=== PATIENT | female | born 1990 | race Caucasian/White ===

== ENCOUNTER 2018-04-26 01:40 | Emergency (ER) | payer SELFPAY ==
[2018-04-26 02:49] LABS: #Basophils 0.1 thou/uL (0.0-0.2); #Eosinphils 0.1 thou/uL (0.0-0.7); #Lymphocytes 3.7 thou/uL (1.20-3.40); #Monocytes 0.6 thou/uL (0.11-0.59); #Neutrophils 4.5 thou/uL (1.40-6.50); %Eosinophils 1.2 % (0.0-10.0); %Lymphocytes 41.5 % (21.0-51.0); %Monocytes 6.3 % (0.0-10.0); %Neutrophils 49.9 % (42.0-75.0); Hemoglobin 14.2 g/dL (12.0-16.0); Mean Corpuscular HGB CONC 34.1 g/dL (32.0-36.0); Mean Corpuscular Hemoglobin 30.5 pg (27.0-31.0); Mean Corpuscular Volume 89.3 fL (78.0-98.0); Mean Platelet Volume 8.2 fL (7.4-10.4); Platelet Count 302 thou/uL (130-400); Red Blood Cell (RBC) Count 4.67 mill/uL (4.20-5.40); White Blood Cell (WBC) Count 8.9 thou/uL (4.8-10.8)
[2018-04-26 03:10] LABS: ALT (SGPT) 8 U/L (8-55); AST (SGOT) 14 U/L (5-34); Albumin 4.7 g/dL (3.5-5.0); Alkaline Phosphatase 53 U/L (40-150); Anion Gap 16 mmol/L (10-20); BUN (Urea Nitrogen) 13 mg/dL (7.0-18.7); Bilirubin, Total 0.9 mg/dL (0.2-1.2); CK (CPK) 85 U/L (29-168); Calc. Creatinine Clearance 0 mL/min (70-130); Calcium 10.3 mg/dL (7.8-10.44); Carbon Dioxide 18 mmol/L (22-29); Chloride 107 mmol/L (98-107); Estimated GFR-MDRD 79; Glucose 106 mg/dL (70-105); Potassium 3.3 mmol/L (3.5-5.1); Protein, Total 7.7 g/dL (6.0-8.3); Sodium 138 mmol/L (136-145)
[2018-04-26 03:14] LABS: CKMB 0.4 ng/mL (0-6.6); Troponin I Less than 0.010 ng/mL (< 0.028)
--- NOTE | 2018-04-26 08:18 | RAD ---
SINGLE VIEW OF THE CHEST: COMPARISON: None. HISTORY: Chest pain on the left that radiates to the right side and back. FINDINGS: Single view of the chest shows a normal sized cardiomediastinal silhouette. There is no evidence of c onsolidation, mass, or pleural effusion. The bones are unremarkable. IMPRESSION: No evidence of acute cardiopulmonary disease. POS: [facility]
--- NOTE | 2018-04-26 09:23 | CT ---
PRELIMINARY REPORT/[facility]/EMERGENCY AFTER HOURS PROCEDURE: EXAM: CT Angiography Chest With Intravenous Contrast CLINICAL HISTORY: 28 years old, female; Pain; Chest pain and chest pressure; Patient HX: F30 presents to ed for chest p ain. Pt reports really bad chest pain that she reports feels like someone is sitting on her chest. Pt reports last night she woke up around 2: 30 in the morning with chest pain TECHNIQUE: Axial computed tomographic angiography images of the chest with intravenous contrast using pulmonary embolism protocol. MIP reconstructed images were created and reviewed. COMPARISON: No relevant prior studies available. FINDINGS: Pulmonary arteries: No pulmonary embolism. Aorta: No acute findings. Lungs: Minimal bilateral upper and lower lobe bronchial wall thickening, compatible with reactive air way disease or bronchitis. Pleural space: Normal. No significant effusion. No pneumothorax. Heart: Normal. Bones/joints: No acute fracture. No dislocation. Soft tissues: Normal. Lymph nodes: Normal. IMPRESSION: 1. No pulmonary embolism. 2. Minimal bilateral upper and lower lobe bronchial wall thickening, compatible with reactive airway disease or bronchitis. Thank you for allowing us to participate in the care of your patient. Dictated and Authenticated by: Eric Cruz MD 04/26/2018 3:09 AM Central Time ([place] & [place]) FINAL REPORT CT ARTERIOGRAM CHEST WITH IV CONTRAST AND 3D MIP IMAGING: DATE: 04/26/18. TIME: Performed on an emergency basis at 0223 hours. HISTORY: Chest pain. Dyspnea. FINDINGS: Agree with the preliminary report by Dr. Cruz from [facility]. There is no CT evidence of p ulmonary embolus. POS: [facility]
[2018-04-26] MEDS ORDERED: ISOVUE-370 76%-LOCM 1 ML ONE (12:01)
== END 2018-04-26 03:24 | disposition home or self-care (01) ==
LOC: ERS 01:40
DX: J40 Bronchitis, not specified as acute or chronic (principal)
CPT/HCPCS: 71045; 71275; 80053; 82550; 82553; 84484; 85025; 93005; 96360

== ENCOUNTER 2018-05-06 10:03 | Outpatient (CLI) | payer OTHER ==
--- NOTE | 2018-05-06 11:45 | ULT ---
ULTRASOUND ABDOMEN LIMITED: (RIGHT UPPER QUADRANT) DATE: 05-06-18 HISTORY: Right upper quadrant abdominal pain in 28-year-old female. FINDINGS: Gallbladder: Large number of gallstones, at least most of them mobile, with various sizes. Normal wal l thickness of 3 mm. No sonographic Vallejo's sign. No pericholecystic fluid. Common duct: 5 mm Liver: Normal sonographic appearance. Pancreas: Normal sonographic appearance. Right kidney: No hydronephrosis. IMPRESSION: 1. Positive for cholelithiasis. 2. No sonographic evidence of acute cholecystitis. BETHANY Landon POS: [facility]
== END 2018-05-06 10:04 | disposition home or self-care (01) ==
LOC: BICULT 10:03
PROVIDERS: ATTEND Family Medicine
DX: K21.9 Gastro-esophageal reflux disease without esophagitis (principal); R10.11 Right upper quadrant pain; K80.20 Calculus of gallbladder without cholecystitis without obstruction
CPT/HCPCS: 76705

== ENCOUNTER 2018-11-01 03:33 | Outpatient (CLI) | payer BC ==
[2018-11-01 09:51] LABS: #Basophils 0.1 thou/uL (0.0-0.2); #Eosinphils 0.1 thou/uL (0.0-0.7); #Lymphocytes 3.2 thou/uL (1.20-3.40); #Monocytes 0.8 thou/uL (0.11-0.59); #Neutrophils 6.9 thou/uL (1.40-6.50); %Basophils 1.1 % (0.0-1.0); %Eosinophils 0.8 % (0.0-10.0); %Lymphocytes 28.9 % (21.0-51.0); %Monocytes 7.4 % (0.0-10.0); %Neutrophils 61.8 % (42.0-75.0); Hemoglobin 12.8 g/dL (12.0-16.0); Mean Corpuscular HGB CONC 33.7 g/dL (32.0-36.0); Mean Corpuscular Hemoglobin 31.5 pg (27.0-31.0); Mean Corpuscular Volume 93.4 fL (78.0-98.0); Mean Platelet Volume 7.6 fL (7.4-10.4); Platelet Count 269 thou/uL (130-400); Red Blood Cell (RBC) Count 4.06 mill/uL (4.20-5.40); White Blood Cell (WBC) Count 11.1 thou/uL (4.8-10.8)
[2018-11-01 10:03] LABS: BHCG - Serum Negative (NEGATIVE); Pregs Control Background? CLEAR/WHITE (CLR/WHITE); Pregs Control Bar Appear? YES (CONTROL BAR)
[2018-11-01 10:13] LABS: Anion Gap 11 mmol/L (10-20); BUN (Urea Nitrogen) 11 mg/dL (7.0-18.7); Calc. Creatinine Clearance 0 mL/min (70-130); Calcium 9.1 mg/dL (7.8-10.44); Carbon Dioxide 26 mmol/L (22-29); Chloride 108 mmol/L (98-107); Estimated GFR-MDRD 83; Glucose 104 mg/dL (70-105); Potassium 3.8 mmol/L (3.5-5.1); Sodium 141 mmol/L (136-145)
== END 2018-11-01 03:34 | disposition home or self-care (01) ==
LOC: LABBT 03:33
PROVIDERS: ATTEND Specialist
DX: Z01.812 Encounter for preprocedural laboratory examination (principal); K80.12 Calculus of gallbladder with acute and chronic cholecystitis without obstruction
CPT/HCPCS: 80048; 84703; 85025

== ENCOUNTER 2018-11-04 07:36 | Day surgery (SDC) | payer BC ==
[2018-11-01 09:15] VITALS: BMI 23.1
--- NOTE | 2018-11-01 09:48 | HP ---
HISTORY OF PRESENT ILLNESS: A 28-year-old female patient, who is 3, para 3, with a 1-year-old youngest, has been experiencing epigastric right upper quadrant pain early in her . She continues with worsening pain. May 2018 ultrasound revealed gallstones, normal bile duct caliber. She is followed by Dr. Eason. I have been asked to see regarding her gallstones. Plan is for laparoscopic cholecystectomy as an outpatient next week. She understands risks of infection, bleeding, visceral and biliary injury, and consents. ALLERGIES: NONE. TOBACCO: None. ALCOHOL: Rarely. PAST SURGICAL HISTORY: Noncontributory. PAST MEDICAL HISTORY: Noncontributory except for anxiety. MEDICATIONS: 1. Escitalopram 10 mg a day. 2. Clonazepam 0.5 mg a day. REVIEW OF SYSTEMS: Ten-point noncontributory. She works at [employer] in [place], doing desk work mostly. She is on the keto diet, successfully losing weight since her . PHYSICAL EXAMINATION: VITAL SIGNS: 161 pounds, 70 inches, 23 BMI, 115/71, 79, and 98.8 degrees. HEAD, EARS, EYES, NOSE, AND THROAT: Unremarkable. LUNGS: Clear to auscultation. CARDIAC: Regular rate and rhythm without murmur or gallop. ABDOMEN: Soft. Mild tenderness in right upper quadrant. EXTREMITIES: Unremarkable. No ankle edema. NEUROLOGICAL: Intact. LYMPH NODES: No lymphadenopathy in neck, axilla, or groins. ASSESSMENT AND PLAN: Symptomatic cholelithiasis, cholecystitis. I would recommend laparoscopic video cholecystectomy. Risks of infection, bleeding, visceral and biliary injury, open procedure discussed, questions answered. Job ID: [id number]
[2018-11-04] MEDS ORDERED: Bupivacaine HCl 0.5%/Epinephrine 1:200,000/PF 30 ml Vial ONE (08:02)
[2018-11-04] MEDS ORDERED: Levofloxacin 500 mg/D5W 100 ml Premix Bag ONE (08:40)
[2018-11-04] MEDS ORDERED: Ketorolac Tromethamine 30 MG/ML VIAL ONE (08:40)
[2018-11-04] MEDS ORDERED: Scopolamine 1.5 mg/72 hour Patch ONE (09:01)
[2018-11-04 09:04] LABS: ALT (SGPT) 11 U/L (8-55); AST (SGOT) 11 U/L (5-34); Albumin 3.8 g/dL (3.5-5.0); Alkaline Phosphatase 39 U/L (40-150); Anion Gap 9 mmol/L (10-20); BUN (Urea Nitrogen) 14 mg/dL (7.0-18.7); Bilirubin, Total 0.5 mg/dL (0.2-1.2); Calc. Creatinine Clearance 123 mL/min (70-130); Calcium 9.2 mg/dL (7.8-10.44); Carbon Dioxide 26 mmol/L (22-29); Chloride 109 mmol/L (98-107); Estimated GFR-MDRD 88; Globulin 2.6 g/dL (2.4-3.5); Glucose 99 mg/dL (70-105); Potassium 4.1 mmol/L (3.5-5.1); Protein, Total 6.4 g/dL (6.0-8.3); Sodium 140 mmol/L (136-145)
[2018-11-04] MEDS ORDERED: Fentanyl 100 MCG/2 ML VIAL ONE ×3 (09:10→10:48)
--- NOTE | 2018-11-04 10:54 | OP ---
DATE OF PROCEDURE: 11/04/2018 PREOPERATIVE DIAGNOSES: Chronic cholecystitis and cholelithiasis. POSTOPERATIVE DIAGNOSES: Chronic cholecystitis and cholelithiasis. PROCEDURE PERFORMED: Laparoscopic video cholecystectomy. ANESTHESIA: General, local 0.5% Marcaine with epinephrine 30 mL, total volume used. DESCRIPTION OF PROCEDURE: The patient was taken to the operating room, where under general anesthesia in supine position, abdomen was prepared with ChloraPrep and draped in routine fashion. Local anesthetic was infiltrated into the skin and subcutaneous tissue about each port site. A vertical incision made. Pneumoperitoneum to 15 mmHg obtained with the Veress needle, replaced with a 5 port via laparoscope inserted. Right subxiphoid incision was made and an 11 mm port placed. Right subcostal incision was made in the midclavicular and anterior axillary lines and the 5 port was placed. Liver appeared to be normal. Gallbladder was full of stones. Fundus was grasped at the cephalad. Infundibulum was grasped and reflected laterally. Cystic artery and duct were dissected free. Critical view obtained. Cystic artery and duct double clipped proximally, divided gallbladder dissected free from liver bed obtaining good hemostasis prior to division of the final peritoneal attachments. Gallbladder and contents removed, submitted to pathology. Good hemostasis ensured. Pneumoperitoneum removed and all instruments were removed. All skin incisions were approximated with interrupted subdermal 4-0 Monocryl and [place] glue applied. Job ID: [id number]
[2018-11-04] MEDS ORDERED: traMADol HCl 50 MG TAB ONE (11:23)
== END 2018-11-04 12:00 | disposition home or self-care (01) ==
LOC: SDC 07:36
PROVIDERS: ATTEND Specialist
PROC: 0FT44ZZ Resection of Gallbladder, Percutaneous Endoscopic Approach (ICD-10-PCS; principal; 2018-11-04)
DX: K80.10 Calculus of gallbladder with chronic cholecystitis without obstruction (principal); Z79.899 Other long term (current) drug therapy
CPT/HCPCS: 80053; 88304; J0131; J0670; J1885; J1956; J3010